=== PATIENT | female | born 1935 | race Caucasian/White ===

== ENCOUNTER 2020-10-09 19:35 | Inpatient (IN) | payer MEDICARE, OTHER ==
[~2020-10-09] VITALS: Ht 160 cm; Wt 81.7 kg
[2020-10-09 20:37] LABS: BASOPHIL 0.4 % (0-2); EOSINOPHIL 0.7 % (0-7); HCT 45.6 % (37.0-47.0); LYMPHOCYTE 12.7 % (15-48); MCH 30.3 pg (25.0-31.0); MCHC 32.9 g/dL (32.0-36.0); MCV 92.1 fL (78.0-100.0); MONOCYTE 6.6 % (0-12); NRBC 0; PLT 245 K/uL (150-400); RBC 4.95 M/uL (4.20-5.40); RDW 13.6 % (11.5-14.0); WBC 12.5 K/uL (4.0-10.5)
[2020-10-09 21:06] LABS: BILIRUBIN NEGATIVE (NEGATIVE); BLOOD NEGATIVE Ery/uL (NEGATIVE); CLARITY CLEAR (CLEAR); COLOR YELLOW (YELLOW); GLUCOSE (U) NORMAL (NORMAL); LEUKOCYTES 2+ Leu/uL (NEGATIVE); NITRITE NEGATIVE (NEGATIVE); PROTEIN TRACE (LOW) mg/dL (NEGATIVE); SPECIFIC GRAVITY 1.015 (1.001-1.030); UROBILINOGEN 0.2 mg/dL (0.2-1.0)
[2020-10-09 21:10] LABS: ALBUMIN 3.8 g/dL (3.4-5.0); BILIRUBIN - TOTAL 0.3 mg/dL (0.2-1.0); BUN/CREAT RATIO (CALC) 11.3 RATIO; CREATININE 1.06 mg/dL (0.51-0.95); GLOBULIN (CALCULATION) 3.3 g/dL; POTASSIUM 3.5 mmol/L (3.5-5.1); TOTAL PROTEIN 7.1 g/dL (6.4-8.2)
[2020-10-09 21:19] LABS: URINARY RBC RARE
[2020-10-09 21:20] LABS: BACTERIA 2+
[2020-10-10] MEDS ORDERED: ZINC30 MG PO (03:25)
[2020-10-10] MEDS ORDERED: OS-CAL500 MG PO (03:26)
[2020-10-10] MEDS ORDERED: MAG-OXIDE 400M400 MG PO (03:26)
[2020-10-10 07:28] LABS: HCT 43.9 % (37.0-47.0); HGB 14.2 g/dl (12.5-16.0); MCH 30.1 pg (25.0-31.0); MCHC 32.3 g/dL (32.0-36.0); MCV 93.2 fL (78.0-100.0); RBC 4.71 M/uL (4.20-5.40); RDW 13.9 % (11.5-14.0); WBC 11.8 K/uL (4.0-10.5)
[2020-10-10 07:41] LABS: INR 1.19 (0.9-1.2); PROTHROMBIN TIME 14.5 SECONDS (11.8-13.4)
[2020-10-10 07:48] LABS: ALBUMIN 3.3 g/dL (3.4-5.0); BILIRUBIN - TOTAL 0.5 mg/dL (0.2-1.0); BUN/CREAT RATIO (CALC) 10.8 RATIO; CREATININE 0.93 mg/dL (0.51-0.95); GLOBULIN (CALCULATION) 2.9 g/dL; MAGNESIUM 2.2 mg/dL (1.8-2.4); PHOSPHORUS 3.4 mg/dL (2.6-4.7); POTASSIUM 3.9 mmol/L (3.5-5.1); TOTAL PROTEIN 6.2 g/dL (6.4-8.2)
[2020-10-10 07:57] LABS: CKMB 8.6 ng/mL (0.0-3.6)
[2020-10-11 07:05] LABS: BASOPHIL 0.7 % (0-2); EOSINOPHIL 3.5 % (0-7); HCT 45.4 % (37.0-47.0); HGB 14.7 g/dl (12.5-16.0); LYMPHOCYTE 28.7 % (15-48); MCH 30.1 pg (25.0-31.0); MCHC 32.4 g/dL (32.0-36.0); MPV 10.1 fL (6.0-9.5); NEUTROPHIL 59.5 % (41-80); NRBC 0; PLT 226 K/uL (150-400); RBC 4.88 M/uL (4.20-5.40); WBC 9.8 K/uL (4.0-10.5)
[2020-10-11 07:32] LABS: BUN/CREAT RATIO (CALC) 12.3 RATIO; CREATININE 1.06 mg/dL (0.51-0.95); POTASSIUM 3.5 mmol/L (3.5-5.1)
--- NOTE | 2020-10-11 10:50 | NUR ---
MET WITH PT AND SON, MAURA [phone]. MAURA IS GOING TO SPEAK WITH HIS SIBLINGS REGARDING HELPING HIS MOTHER. MAURA STATED THAT THERAPY HAD ADVISED HIM TH AT HIS MOTHER WOULD NEED 24/7 CARE. GAVE MAURA INFORMATION REGARDING ASSISTED LIVING, PENITENTIARY FACILITIES AND VISTING ANGELS. ALSO ADVISED HIM THAT THERE ARE ONLY TWO HH AGENCIES AT THIS TIME THAT WILL ACCEPT PT FOR NURSING, PT/OT. ADVISED THAT [facility] IS ON HOLD FOR NURSING AND THAT [facility] ARE THE ONLY TWO TO PROVIDE NURSING, PT/OT. MAURA WILL SPEAK WITH HIS SIBLINS REGARDING THEIR CHOICE FOR HH. HE IS OPPOSED TO A NURSING FACILITY.
--- NOTE | 2020-10-11 14:33 | NUR ---
SPOKE WITH DEVIN MERAZ [facility] [phone]. SHE ADVISED THAT SHE IS THE POA. SHE REQUESTED [facility] FOR HH. FAXED REFERRAL TO [facility] AT [facility]. RW AND 04/22 HAVE BEEN DELIVERED. PLEASE NOTIFY [facility] WHEN PT IS DC.
[2020-10-12] MEDS ORDERED: LOPRESSOR25 MG PO (12:20)
[2020-10-12] MEDS ORDERED: NORVASC5 MG PO (12:20)
[2020-10-12] MEDS ORDERED: COZAAR100 MG PO (12:20)
[2020-10-12] MEDS ORDERED: BACTRIM DS TAB1 EACH PO (12:20)
[2020-10-12] MEDS ORDERED: ASPIRIN EC81 MG PO ×2 (12:20→13:03)
--- NOTE | 2020-10-12 13:51 | NUR ---
5703 discharge INSTRUCTIONS DISCUSSED WITH PT AND DAUGHTER, VERBALIZED UNDERSTANDING. PT TRANSPORTED VIA WHEELCHAIR TO DAUGHTERS CAR. IV DC'D AT THIS TIME, PT TOLERATED WELL
== END 2020-10-12 13:45 | disposition home or self-care (01) | DRG 280 ==
LOC: FER 19:35 → FMS 10-10 02:07
PROVIDERS: Emergency Medicine Emergency Medical Services; Nurse Practitioner; ADMIT Internal Medicine
DX: I10 Essential (primary) hypertension (principal); I21.A1 Myocardial infarction type 2; G93.41 Metabolic encephalopathy; N30.00 Acute cystitis without hematuria; Z20.822 Contact with and (suspected) exposure to COVID-19; I27.20 Pulmonary hypertension, unspecified; I34.0 Nonrheumatic mitral (valve) insufficiency; Z79.899 Other long term (current) drug therapy
CPT/HCPCS: 36415; 70450; 71045; 72125; 80048; 80053; 81001; 82553; 83605; 83735; 83880; 84100; 84145; 84484; 85025; 85610; 85730; 87088; 93005; 94010; 94760; 96372; 97110; 97162; 97165; 97530-GP; 97535; G0378; J0696; J1650; J3490; J7040; U0002